=== PATIENT | female | born 2000 | race Caucasian/White ===

== ENCOUNTER 2021-08-25 18:44 | Inpatient (IN) | payer BC, OTHER ==
[2021-08-25] MEDS ORDERED: CITRIC ACID-SODIUM CITRATE 15 ML CUP PO ONE (18:59)
[2021-08-25] MEDS ORDERED: LACTATED RINGERS 1,000 ML IV SCH ×2 (19:00→20:49)
[2021-08-25 19:27] LABS: Basophils % (A) 0 %; Eosinophils % (A) 0 %; HCT 36.2 % (34.0-46.0); HGB 11.8 gm/dL (11.4-16.0); Hypochromasia Slight; Lymphocytes % (A) 5 %; MCH 29.1 pg (25.0-35.0); MCHC 32.7 g/dL (31.0-37.0); MCV 88.9 fL (80.0-100.0); Mean Platelet Volume 9.6; Monocytes # (A) 0.9 k/uL (0-1.0); Monocytes % (A) 4 %; Neutrophils # (A) 19.8 k/uL (1.3-7.7); Neutrophils % (A) 89 %; Platelet Count 261 k/uL (150-450); Poikilocytosis Slight; RBC 4.07 m/uL (3.80-5.40); RDW 13.7 % (11.5-15.5); WBC 22.2 k/uL (3.8-10.6)
[2021-08-25] MEDS ORDERED: MORPHINE SULFATE (PF) 0.3 MG/0.3 ML SYR ONE (19:30)
[2021-08-25] MEDS ORDERED: OXYTOCIN 30 UNITS/500 ML NS BAG IV ONE (19:30)
[2021-08-25] MEDS ORDERED: NALBUPHINE 10 MG/ML (1 ML AMP) ONE (19:30)
--- NOTE | 2021-08-25 20:19 | P.OP ---
Date of Procedure: 08/25/21 Preoperative Diagnosis: IUP at 39-5/7 weeks, arrest of descent, failed home Postoperative Diagnosis: Same Procedure(s) Performed: Primary low transverse section Anesthesia: spinal Surgeon: Sandhya Hunt Finisher Denture #1: Kelsey York Estimated Blood Loss (ml): 400 IV fluids (ml): 700 Urine output (ml): 400 Pathology: other (Placenta) Condition: stable Disposition: observation Indications for Procedure: 21-year-old 1 para 0 at 39-5/7 weeks that presented from home after failed home . Patient is requesting primary , secondary to arrest of descent Operative Findings: Normal uterus tubes and ovaries, viable male infant delivered at 1948, weight of 7 lbs. 10 oz. Description of Procedure: Patient was taken back to the operating suite where spinal anesthesia was found be adequate by the anesthesia department. She was then prepped and draped in normal sterile fashion in the dorsal supine position. A Pfannenstiel skin incision was made with the scalpel and carried through the underlying layer of fascia. The fascia was then incised in the midline and the incision was extended laterally. The superior aspect of the fascial incision was then grasped jt clamps, elevated and underlying rectus muscles dissected off sharply. Attention was then turned the inferior aspect of the fascial incision which was grasped jt clamps, elevated and underlying rectus muscles dissected off sharply. The rectus muscles were in the midline the peritoneum was identified and entered. The bladder blade was then introduced into the pelvis. The vesicouterine peritoneum was identified and the bladder flap was created using sharp and blunt dissection. The bladder blade was then reinserted into the pelvis. Hysterotomy incision was made with the scalpel clear fluid was obtained and the was encountered in a vertex presentation. A loose nuchal cord was appreciated and delivered through. A spontaneous cry was noted at . The umbilical cord was doubly clamped and cut. The infant was handed off to awaiting RN. Cord blood was then taken. The uterus was then cleared of all clots and debris and the sponge was delivered manually intact. A three- vessel cord was appreciated. The uterine incision was then closed with 0 Vicryl in a running locked fashion. A second imbricating suture was performed. Hemostasis was appreciated. The uterus was returned to the abdomen and the gutters were cleared of all clots and debris. Small amount of bleeding was noted on the left-hand side of the uterine incision therefore a [id number] suture was used to obtain hemostasis. The peritoneum was then loosely reapproximated the rectus muscles were inspected and any points of bleeding were made hemostatic with the Bovie. The fascia was then closed with 0 Vicryl in a running fashion from one lateral edge the midline and the other lateral edge the midline. The subcu tissues tissue was irrigated found to be hemostatic and closed with 3-0 Vicryl. The skin was then closed with 4-0 Vicryl in a subcuticular fashion. Steri-Strips and sterile dressings were applied. All counts were correct 2 at the end of the procedure. Patient and tolerated delivery well and are resting complete.
--- NOTE | 2021-08-25 20:20 | P.HPOB ---
History of Present Illness H&P Date: 08/25/21 Chief Complaint: IUP at 39-5/7 weeks, arrest of descent, failed home This is a 21-year-old 1 para 0 at 39-5/7 weeks with an estimated due date on 08/27/2021 based on patient's superintendent laundry. Patient presents to labor and delivery with complaints of arrest of descent. Patient states she had rupture of membranes around 11 PM, clear in nature the superintendent laundry was in attendance and at the bedside. She states she presented to the patient's house around 1 AM. She states the patient was completely dilated around 10 AM, she then began pushing off and on. The superintendent laundry does state that a persistent anterior lip was reduced multiple times during pushing. Patient states her blood type is O+, superintendent laundry does state she has a positive group beta strep culture with no antibiotic treatment during labor. Review of Systems Constitutional: Reports fatigue, Denies chills, Denies fever Ears, nose, mouth and throat: Denies headache Cardiovascular: Reports leg edema Respiratory: Denies dyspnea Gastrointestinal: Denies constipation, Denies diarrhea, Denies nausea, Denies vomiting Genitourinary: Reports Medications and Allergies Home Medications Medication Instructions Recorded Confirmed Type No Known Home Medications 08/25/21 08/25/21 History Allergies Allergy/AdvReac Type Severity Reaction Status Date / Time No Known Allergies Allergy Verified 08/25/21 18:57 Exam Osteopathic Statement: *. No significant issues noted on an osteopathic structural exam other than those noted in the History and Physical/Consult. Intake and Output 08/25/21 08/25/21 08/25/21 06:59 14:59 22:59 Other: Weight 72.668 kg Targeted physical exam is performed and state in general very uncomfortable patient actively laboring, on cervical exam per the RN anterior lip was persistent and swollen station is 0 to +1. heart tones are noted to be category 1 contractions or not tracing. Results Result Diagrams: 08/25/21 19:22 Assessment and Plan (1) Term Current Visit: Yes Status: Acute Code(s): Z34.90 - ENCNTR FOR SUPRVSN OF NORMAL , UNSP, UNSP TRIMESTER SNOMED Code(s): 73322560 (2) Active labor Current Visit: Yes Status: Acute Code(s): UKC9527 - SNOMED Code(s): 461725471 (3) Positive GBS test Current Visit: Yes Status: Acute Code(s): B95.1 - STREPTOCOCCUS, GROUP B, CAUSING DISEASES CLASSD ELSWHR SNOMED Code(s): 102538343 (4) Arrest of descent, delivered, current hospitalization Current Visit: Yes Status: Acute Code(s): O62.1 - SECONDARY UTERINE INERTIA SNOMED Code(s): 27609245 Plan: 21-year-old 1 para 0 at 39 and 5 presents to labor and delivery from home with superintendent laundry after failed attempts of home delivery. Patient has been complete since 10 AM pushing off-and-on with persistent anterior lip. Patient is requesting section. Patient is counseled on risks of including but not limited to infection, bleeding, damage to bladder, bowel, uterine laceration secondary to station, injury. Patient states understanding and wishes to proceed with . Given her group beta strep culture positive discussion was had with the patient by myself and pediatrics about risks of infection and the baby. Given her prolonged rupture risk of uterine infection is discussed and 24-hour antibiotics will be ordered..
[2021-08-25 20:34] VITALS: RESP 16
[2021-08-25] MEDS ORDERED: diphenhydrAMINE 50 MG CAP PO PRN (20:49)
[2021-08-25] MEDS ORDERED: ONDANSETRON 4 MG/2 ML VIAL IVP PRN (20:49)
[2021-08-25] MEDS ORDERED: METOCLOPRAMIDE 5 MG/ML 2 ML VIAL IVP PRN (20:49)
[2021-08-25] MEDS ORDERED: OXYTOCIN 30 UNITS/500 ML NS 30 UNIT in SALINE 1 500ML.BAG IV SCH (20:49)
[2021-08-25] MEDS ORDERED: diphenhydrAMINE 25 MG CAP PO PRN (20:49)
[2021-08-25] MEDS ORDERED: NALOXONE 0.4 MG/ML 1 ML VIAL IV PRN ×2 (20:49→21:23)
[2021-08-25] MEDS ORDERED: ZOLPIDEM 5 MG TAB PO PRN (20:49)
[2021-08-25] MEDS ORDERED: diphenhydrAMINE 50 MG/ML 1 ML VIAL IVP PRN ×2 (20:49)
[2021-08-25] MEDS ORDERED: MORPHINE SULFATE 2 MG/ML SYRINGE IVP PRN (21:23)
[2021-08-25] MEDS: SIMETHICONE 80 MG CHEWABLE PO PRN (22:42)
[2021-08-26] MEDS ORDERED: ACETAMINOPHEN IV (For NPO) 1,000 MG in EMPTY BAG 1 BAG IVPB SCH
[2021-08-26] MEDS ORDERED: IBUPROFEN IV 800 MG in SODIUM CHLORIDE 0.9% 250 ML IV PRN (03:00)
[2021-08-26] MEDS: SENNOSIDES-DOCUSATE SODIUM 1 EACH TAB PO SCH ×3 (03:30→20:08)
[2021-08-26 05:34] LABS: Basophils % (A) 0 %; Eosinophils % (A) 0 %; HCT 34.1 % (34.0-46.0); HGB 10.8 gm/dL (11.4-16.0); Hypochromasia Slight; Lymphocytes # (A) 1.7 k/uL (1.0-4.8); Lymphocytes % (A) 11 %; MCH 28.6 pg (25.0-35.0); MCHC 31.6 g/dL (31.0-37.0); MCV 90.3 fL (80.0-100.0); Mean Platelet Volume 9.9; Monocytes # (A) 0.8 k/uL (0-1.0); Monocytes % (A) 5 %; Neutrophils # (A) 12.5 k/uL (1.3-7.7); Neutrophils % (A) 82 %; Platelet Count 195 k/uL (150-450); Poikilocytosis Slight; RBC 3.78 m/uL (3.80-5.40); RDW 13.2 % (11.5-15.5); WBC 15.3 k/uL (3.8-10.6)
--- NOTE | 2021-08-26 08:12 | P.PN ---
Progress Note - Text Date: 08/26/2021 Time: 07:21 The patient is status post section Vital signs stable VAS: 0-10 Patient has no complaints of pain. The patient incurred some minimal itching yesterday, this itching is now subsiding. Pain meds to be managed by service.
--- NOTE | 2021-08-26 08:59 | P.PNOBGPC ---
Subjective - Subjective Principal diagnosis: Postop day 1 section for failed home , arrest of descent Interval history: Patient is doing well this morning. Parker catheter was just removed and we are awaiting spontaneous void. She states her lochia is minimal. She states her pa in is well-controlled. She is breast-feeding without difficulty. Patient reports: Reports appetite normal, Reports pain well controlled, Reports ambulating normally [place]: doing well Objective - Vital Signs Latest vital signs: Vital Signs Temp Pulse Resp BP Pulse Ox 08/26/21 08:24 98.2 F 86 16 106/62 08/26/21 04:00 98.8 F 81 16 117/70 96 08/26/21 00:00 98.3 F 103 H 16 117/66 96 08/25/21 22:23 16 99 08/25/21 22:19 93 16 135/61 99 08/25/21 21:49 97.4 F L 80 16 110/60 08/25/21 21:23 16 109/51 98 08/25/21 21:19 93 16 113/57 08/25/21 21:04 72 16 105/53 08/25/21 20:49 97.2 F L 84 16 116/56 08/25/21 20:34 97.2 F L 83 16 113/51 08/25/21 20:19 96.8 F L 98 16 117/55 99 08/25/21 18:54 98.6 F 124 H 18 127/74 99 Intake and Output 08/25/21 08/26/21 08/26/21 22:59 06:59 14:59 Output Total 1200 1000 Balance -1200 -1000 Output: Urine 400 1000 Uretheral (Parker) 1000 Estimated Blood Loss 400 Output, Quantitative 400 Blood Loss Other: Voiding Method Indwelling Catheter Weight 72.668 kg - Exam Extremities: Present: normal, edema Abdomen: Present: normal appearance Incision: Present: normal, dry, intact Uterus: Present: normal, firm - Labs Labs: Abnormal Lab Results - Last 24 Hours (Table) 08/25/21 08/26/21 Range/Units 19:22 05:07 WBC 22.2 H 15.3 H (3.8-10.6) k/uL RBC 3.78 L (3.80-5.40) m/uL Hgb 10.8 L (11.4-16.0) gm/dL Neutrophils # 19.8 H 12.5 H (1.3-7.7) k/uL Assessment and Plan (1) Term Current Visit: Yes Status: Acute Code(s): Z34.90 - ENCNTR FOR SUPRVSN OF NORMAL , UNSP, UNSP TRIMESTER SNOMED Code(s): 81704743 (2) Active labor Current Visit: Yes Status: Acute Code(s): PAH7384 - SNOMED Code(s): 211606985 (3) Positive GBS test Current Visit: Yes Status: Acute Code(s): B95.1 - STREPTOCOCCUS, GROUP B, CAUSING DISEASES CLASSD ELSR SNOMED Code(s): 469779051 (4) Arrest of descent, delivered, current hospitalization Current Visit: Yes Status: Acute Code(s): O62.1 - SECONDARY UTERINE INERTIA SNOMED Code(s): 00752467 Plan: 21-year-old G1 now P1 status post primary for failed home delivery with arrest of descent. Patient is doing well postoperatively. We will encourage increased ambulation, awaiting spontaneous void. Anticipate discharge home tomorrow
[2021-08-26] MEDS ORDERED: ACETAMINOPHEN TAB 500 MG TAB PO SCH (12:00)
[2021-08-26] MEDS: IBUPROFEN 600 MG TAB PO SCH ×2 (13:44→20:06)
[2021-08-27] MEDS: IBUPROFEN 600 MG TAB PO SCH ×4 (02:10→18:58)
[2021-08-27] MEDS: SIMETHICONE 80 MG CHEWABLE PO PRN (02:18)
[2021-08-27] MEDS: SENNOSIDES-DOCUSATE SODIUM 1 EACH TAB PO SCH ×2 (07:46→21:29)
--- NOTE | 2021-08-27 12:09 | P.DS ---
Providers Date of admission: 08/25/21 19:22 Expected date of discharge: 08/27/21 Attending physician: Sandhya Hunt Primary care physician: Stated None - Discharge Diagnosis(es) (1) Term Current Visit: Yes Status: Acute (2) Active labor Current Visit: Yes Status: Acute (3) Positive GBS test Current Visit: Yes Status: Acute (4) Arrest of descent, delivered, current hospitalization Current Visit: Yes Status: Acute (5) S/P section Current Visit: Yes Status: Acute Hospital Course: 21-year-old G1 now P1 status post primary after failed home attempt. Patient was noted to be 39 and 5 per patient and her retail account manager. Patient was admitted to labor and delivery after documentation of rupture of membranes around 11 PM the night prior to presentation in the hospital. Patient's retail account manager states she had been complete since 10 AM and had been pushing off and on. Patient presented with persistent anterior lip of the cervix, malpresentation was suspected. Patient was counseled on primary secondary to arrest of descent, failed home attempt. Patient was taken back to the operating suite where was performed without difficulty. A liveborn male was delivered at 1948, weight of 7 lbs. 10 oz. Patient's course has been uneventful. On this postoperative day #2 she is ambulating and voiding without difficulty. She is tolerating a regular diet without nausea or vomiting. She is breast-feeding without difficulty. She would like discharge home. Patient Condition at Discharge: Good Plan - Discharge Summary New Discharge Prescriptions: No Action No Known Home Medications Discharge Medication List No Known Home Medications 08/25/21 [History] Follow up Appointment(s)/Referral(s): Sandhya Hunt DO [Doctor of Osteopathic Medicine] - 2 Weeks Patient Instructions/Handouts: (DC), (GEN) Discharge Disposition: HOME SELF-CARE
[2021-08-27 15:44] VITALS: BP 106/66; PULSE 106; TEMP 98.1
== END 2021-08-27 21:25 | disposition home or self-care (01) | DRG 788 ==
LOC: FBPOP 18:44 → 4FBP 19:22
PROVIDERS: ADMIT Obstetrics & Gynecology Obstetrics; ATTEND Obstetrics & Gynecology Obstetrics
PROC: 10D00Z1 Extraction of Products of Conception, Low, Open Approach (ICD-10-PCS; principal; 2021-08-25 19:24)
DX: O32.9XX0 Maternal care for malpresentation of fetus, unspecified, not applicable or unspecified (principal); O62.1 Secondary uterine inertia; O99.824 Streptococcus B carrier state complicating childbirth; Z37.0 Single live birth; Z3A.39 39 weeks gestation of pregnancy
CPT/HCPCS: 59025; 85025; 86850; 86900; 86901; 99213